=== PATIENT | male | born 1950 | race Asian ===

== ENCOUNTER 2019-12-26 11:37 | Emergency (ER) | payer MEDICARE ==
--- OUTSIDE RECORDS SUMMARY | 2019-12-26 11:46 | XMS REPORT | Continuity of Care Document ---
:1950 External Reference #:[id number] Author Name Jaime Marcelino M.D. (transmitted by agent of provider Laila Casper ) Address [address], [address] [place] [id number] Care Team Providers Name Role Phone [facility] deltamethod - Care Team Information Teradata Architect [phone] Travel Registered Nurse Oncology Jaime Marcelino III, MD - Internal Care Team Information [employer]adata Architect Medicine Sunshine Sawant MD - Pulmonary Care Team Information [employer] Architect Disease Problems Active Problems Provider Date Arteriovenous malformation of large intestine Shreyas Albarran MD Onset: 08/2018 Note: bicapped March 2018 Tobacco dependence syndrome Shreyas Albarran MD Onset: 07/20/1966 Occult blood in stools Shreyas Albarran MD Onset: 07/20/2018 Note: negative 07/20/18 Gastroesophageal reflux disease Shreyas Albarran MD Onset: 2018 Diabetes mellitus Shreyas Albarran MD Onset: 2005 Note: A1cs- Jul 2018 9.8 - in Feb 2019 previous 8 yrs worst 10.12 Aug 2014 and best 6.17 Oct 2016; Hypertensive disorder Shreyas Albarran MD Onset: 2003 Social History Type Date Description Comments Sex Unknown Tobacco Use Start: Unknown current cigarette smoker Cigarette Use Pack Years - 48 1/2 last 5 year 1 pack last 45 Smoking Status Reviewed: 11/01/19 current cigarette smoker ETOH Use Occasionally Consumed Alcoholic Beverages Tobacco Use Start: Unknown Patient is a current 1/2 pack cigarettes a smoker, smokes every day. day Recreational Drug Use Denies Drug Use Allergies, Adverse Reactions, Alerts Description No Known Drug Allergies Medications Active Medications SIG Qnty Indications Ordering Date Provider Ventolin HFA 1 to 2 inhalations 8gm R06.02 Page 09/22/2019 every 4 to 6 hours DYLAN White 108(90Base) mcg/Act as needed Aerosol Glipizide ER Take One Tablet By 180tabs Jaime ETracy 06/11/2019 10mg Mouth Twice A Day Otis Marcelino Tablets ER 24HR as Directed Jardiance 1 by mouth daily in 90tabs E11.9 Jaime ETracy 05/05/2019 10mg the morning Otis Marcelino Tablets Omeprazole 1 by mouth three 90caps Jaime ETracy 07/14/2018 20mg times a week Otis Marcelino Capsules Lisinopril-Hydrochl Take One Tablet By 90tabs Jaime E. orothiazide Mouth Once Daily Otis Marcelino 20-12.5mg Tablets Pravastatin Sodium take 1 tablet by 90tabs Jaime E. mouth at bedtime Otis Marcelino 40mg Tablets Metformin HCL take one tablet by 180tabs Jaime E. mouth twice a day Otis Marcelino 1000mg Tablets History Medications Nicoderm CQ use 1 patch daily 28units Jaime Marcelino, 06/15/2019 - M.D. 07/13/2019 14mg/24HR Patches 24HR Nicorette pt req fruity 110units Jaime Marcelino, 06/15/2019 - 4mg Gum flavored Nicotine Otis 07/13/2019 Medications Administered in Office Medication SIG Qnty Indications Ordering Provider Date [facility] pharmacy administered Unknown 09/16/2019 Injection Immunizations CPT Code Status Date Vaccine Reaction Lot # [id number] Given 08/30/2019 Fluzone High Dose 39111 Given 05/05/2019 Tdap - shot tolerated well, no 525np Tetanus/Diptheria/Acellular immediate reaction Pertussis 26119 Given 06/03/2018 Pneumonia Vaccine 76051 Given 10/22/2016 Pneumococcal Conjugate Vaccine 13 Valent For Intramuscular Use 49929 Given 08/12/2008 Tetanus And Diptheria (Td) For Adult Use Preservative Free Vital Signs Date Vital Result Comment 11/01/2019 3:44pm Height 62 inches 5'2" Weight 150.00 lb Heart Rate 70 /min BP Systolic Sitting 108 mmHg BP Diastolic Sitting 60 mmHg BMI (Body Mass Index) 27.4 kg/m2 09/22/2019 1:46pm Height 62 inches 5'2" Weight 149.00 lb Heart Rate 54 /min BP Systolic 108 mmHg BP Diastolic 60 mmHg O2 % BldC Oximetry 93 % BMI (Body Mass Index) 27.2 kg/m2 Results Test Acquired Date Facility Test Result H/L Range Note Laboratory test 08/05/2019 [facility] House Hemoglobin A1c 7.4 High 5-7 finding Basic Metabolic 06/04/2019 [facility] Sodium 137 mmol/L Normal 135-[address] [place] [address] [phone] Potassium 4.8 mmol/L Normal 3.5-5.0 Chloride 101 mmol/L Normal 101-111 Co2 Carbon Dioxide 30 mmol/L Normal 22-32 Anion Gap 6 mmol/L Normal 2-11 Glucose 126 mg/dL High 70-100 Blood Urea Nitrogen 28 mg/dL High 6-24 Creatinine 1.21 mg/dL High 0.67-1.17 BUN/Creatinine Ratio 23.1 High 8-20 Calcium 9.9 mg/dL Normal 8.6-10.3 Egfr Non- 59.1 >60 Egfr 71.5 >60 1 1 Because ethnic data is not always readily available, this report includes an eGFR for both -Americans and non- Americans. The National Kidney Disease Education Program (NKDEP) does not endorse the use of the MDRD equation for patients that are not between the ages of 18 and 70, are , have extremes of body size, muscle mass, or nutritional status, or are non- or non-. According to the National Kidney Foundation, irrespective of diagnosis, the stage of the disease is based on the level of kidney function: Stage Description GFR(mL/min/1.73 m(2)) 1 Kidney damage with normal or decreased GFR 90 2 Kidney damage with mild decrease in GFR 60-89 3 Moderate decrease in GFR 30-59 4 Severe decrease in GFR 15-29 5 Kidney failure <15 (or dialysis) Procedures Date Code Description Status 08/09/2019 94683 Sleep Study Unattended,HRT Rate,Oxygen Sat,Resp Completed Effort/Airflow 08/09/2019 80420 Diffusing Capacity Completed 08/09/2019 09120 Pulmonary Stress Testing[facility] Measurement Heart Rate, Completed Oximetry 08/09/2019 93955 Spirometry Incl Graphic Record Completed 03/27/2018 02383047 Colonoscopy Completed 10/31/2008 05634608 Colonoscopy Completed Medical Devices Description No Information Available Encounters Type Date Location Provider Dx Diagnosis Office Visit 09/22/2019 [facility] R06.02 Shortness of 2:00p [facility] White breath [employer] F17.210 Nicotine dependence, cigarettes, uncomplicated Z12.2 Encntr screen for malignant neoplasm of respiratory organs G47.33 Obstructive sleep apnea (adult) (pediatric) R09.02 Hypoxemia Office Visit 08/05/2019 3:00p [facility] Internal Jaime Camarillo E11.9 Type 2 diabetes Jovanny Marcelino M.D. mellitus without [facility] complications I10 Essential (primary) hypertension E78.00 Pure hypercholesterolemia, unspecified Office Visit 07/13/2019 8:30a [facility] Sunshine R06.02 Shortness of [facility] Jese breath [employer] R06.83 Snoring R09.02 Hypoxemia F17.210 Nicotine dependence, cigarettes, uncomplicated Z12.2 Encntr screen for malignant neoplasm of respiratory organs Office Visit 05/05/2019 3:00p [facility] Internal Jaime Camarillo E11.9 Type 2 diabetes Jovanny Marcelino M.D. mellitus without [facility] complications Z23 Encounter for immunization Assessments Date Code Description Provider 11/01/2019 E11.9 Type 2 diabetes mellitus without Jaime Marcelino M.D. complications 11/01/2019 I10 Essential (primary) hypertension Jaime Marcelino M.D. 11/01/2019 G47.33 Obstructive sleep apnea (adult) (pediatric) Jaime Marcelino M.D. 09/22/2019 R06.02 Shortness of breath Page White NP 09/22/2019 F17.210 Nicotine dependence, cigarettes, Page White NP uncomplicated 09/22/2019 Z12.2 Encounter for screening for malignant Page White NP neoplasm of respiratory organs 09/22/2019 G47.33 Obstructive sleep apnea (adult) (pediatric) Page White NP 09/22/2019 R09.02 Hypoxemia Page White NP 08/09/2019 G47.33 Obstructive sleep apnea (adult) (pediatric) Sunshine Sawant MD 08/09/2019 R06.02 Shortness of breath Sunshine Sawant MD 08/05/2019 E11.9 Type 2 diabetes mellitus without Jaime Marcelino M.D. complications 08/05/2019 I10 Essential (primary) hypertension Jaime Marcelino M.D. 08/05/2019 E78.00 Pure hypercholesterolemia, unspecified Jaime Marcelino M.D. 07/13/2019 R06.02 Shortness of breath Sunshine Sawant MD 07/13/2019 R06.83 Snoring Sunshine Sawant MD 07/13/2019 R09.02 Hypoxemia Sunshine Sawant MD 07/13/2019 F17.210 Nicotine dependence, cigarettes, Sunshine Sawant MD uncomplicated 07/13/2019 Z12.2 Encounter for screening for malignant Sunshine Sawant MD neoplasm of respiratory organs 05/05/2019 E11.9 Type 2 diabetes mellitus without Jaime Marcelino M.D. complications 05/05/2019 Z23 Encounter for immunization Jaime Marcelino M.D. Plan of Treatment Future Appointment(s):02/10/2020 3:00 pm - Jaime Marcelino M.D. at [facility] Internal Medicine - [facility]03/13/2020 1:00 pm - Shreyas Albarran MD at [facility] [id number]/22/2020 2:30 pm - Page White NP at [facility]11/01/2019 - Jaime Marcelino M.D.E11.9 Type 2 diabetes mellitus without complicationsComments:Jardiance refilled; other meds current. Continue diet, exercise, weight control efforts.Follow up:February as [id number] Essential (primary) hypertensionComments:BPs good. Lisinopril [id number] Obstructive sleep apnea (adult) (pediatric)Comments:CPAP trial just done; no results on chart yet, but pt following at the sleep clinic Functional Status Description No Information Available Mental Status Description No Information Available Referrals Refer to Reason for Referral Status Appt Date Sunshine Sawant MD (+) COPD, abnormal overnight oximetry Sent 07/13/[address] [place] [address] [phone]
[2019-12-26 11:52] VITALS: BP 132/76
--- NOTE | 2019-12-26 12:17 | UC ---
Eye Complaint HPI - HPI Summary HPI Summary: 69 year old male presents with complaints of right eye itching and redness that started yesterday. States this morning he woke up with with some tenderness and swelling of the lower eyelid. No known injury. Denies fever, chills, URI symptoms, visual disturbances, or eye pain. - History of Current Complaint Chief Complaint: UCEye Stated Complaint: EYE ISSUE Time Seen by Provider: 12/26/19 12:11 Hx Obtained From: Patient Pain Intensity: 0 - Allergies/Home Medications Allergies/Adverse Reactions: Allergies Allergy/AdvReac Type Severity Reaction Status Date / Time No Known Allergies Allergy Verified 12/26/19 11:52 PMH/Surg Hx/FS Hx/Imm Hx Endocrine History: Diabetes, Dyslipidemia Cardiovascular History: Hypertension GI/ History: Gastroesophageal Reflux - Surgical History Surgical History: None - Family History Known Family History: Positive: Non-Contributory - Social History Occupation: Retired Lives: With Family Alcohol Use: None Substance Use Type: None Smoking Status (MU): Light Every Day Tobacco Smoker Review of Systems All Other Systems Reviewed And Are Negative: Yes Physical Exam - Summary Physical Exam Summary: GENERAL APPEARANCE: Well developed, well nourished, alert and cooperative, and appears to be in no acute distress. EYES: Single hordeolum noted to the right lower eyelid. Mild erythema and edema of the lower lid. Mild right conjunctival erythema with scant amount of purulent drainage. Left conjunctiva clear. PERRL, EOM intact. Vision is grossly intact. EARS: External auditory canals and tympanic membranes clear, hearing grossly intact. NOSE: No nasal discharge. THROAT: Pharynx normal. No tonsilar inflammation, swelling, exudate, or lesions. Uvula midline. NECK: Neck supple, non-tender without lymphadenopathy. CARDIAC: Normal S1 and S2. No S3, S4 or murmurs. Rhythm is regular. There is no peripheral edema, cyanosis or pallor. Extremities are warm and well perfused. Capillary refill is less than 2 seconds. Peripheral pulses intact. LUNGS: Clear to auscultation without rales, rhonchi, wheezing or diminished breath sounds. ABDOMEN: Positive bowel sounds. Soft, nondistended, nontender. No guarding or rebound. No masses or hepatosplenomegally. MUSKULOSKELETAL: ROM intact to all extremities. No joint erythema or tenderness. Normal muscular development. Normal gait. SKIN: Skin normal color, texture and turgor with no lesions or eruptions. Triage Information Reviewed: Yes Vital Signs: Initial Vital Signs Temp 97.4 F 12/26/19 11:48 Pulse 70 12/26/19 11:48 Resp 12 12/26/19 11:48 BP 132/76 12/26/19 11:48 Pulse Ox 99 12/26/19 11:48 Vital Signs Reviewed: Yes Eye Complaint Course/Dx - Course Course Of Treatment: 69 year old male presents with complaints of right eye itching and redness that started yesterday. States this morning he woke up with with some tenderness and swelling of the lower eyelid. No known injury. Denies fever, chills, URI symptoms, visual disturbances, or eye pain. Afebrile. Vital signs stable. Patient had a single hordeolum noted to the right lower eyelid with mild erythema and edema of the lower lid. Mild right conjunctival erythema with scant amount of purulent drainage. Left conjunctiva clear. PERRL, EOM intact. Vision is grossly intact. Remainder of exam was unremarkable. Discussed with the patient that his exam is consistent with a hordeolum with infection. Will start him on ofloxacin opthalmic drops 1-2 drops into the affected eye every 4 hours while awake x 7 days and have him perform warm moist compresses to the eye. He is to follow up with ophthalmology in 2 days if no improvement. Anticipatory guidance and warning symptoms reviewed with patient. Verbalizes understanding and agrees with POC. - Differential Dx/Diagnosis Differential Diagnosis/HQI/PQRI: Conjunctivitis, Periorbital Cellulitis, Orbital Cellulitis Provider Diagnosis: Hordeolum externum right lower eyelid Discharge ED - Sign-Out/Discharge Documenting (check all that apply): Patient Departure All imaging exams completed and their final reports reviewed: No Studies - Discharge Plan Condition: Stable Disposition: HOME Prescriptions: Ofloxacin 0.3% (Eye Drop) [Ocuflox OPTH 0.3% (Eye Drop)] 1 - 2 drop RIGHT EYE Q4H 7 Days #1 btl Patient Education Materials: Kely (ED) Referrals: Jaime Marcelino MD [Primary Care Provider] - Juan Carlos Gaona MD [Medical Doctor] - 2 Days (If no improvement. Call for appointment.) Additional Instructions: Your symptoms are consistent with a hordeolum (stye) of the lower right eyelid. There appears to be some infection present therefore we will start you on an antibiotic eye drop. Start ofloxacin ophthalmic drops. Instill 1-2 drops into the affected eye every 4 hours while awake for 7 days. Apply a warm moist compress to the eye for 15 minutes at least 3 times a day. Take acetaminophen (Tylenol) or ibuprofen (Advil, Motrin) according to directions as needed for pain. Follow up with ophthalmology in 2 days if no improvement in your symptoms. Call for an appointment. Seek immediate medical attention in the emergency room if you develop fever greater than 100.5 F, have severe eye pain, visual disturbances, loss of vision , increased swelling of the eye, or any worsening of symptoms. - Billing Disposition and Condition Condition: STABLE Disposition: Home
== END 2019-12-26 12:49 | disposition home or self-care (01) ==
LOC: UCEAST 11:37
DX: H00.012 Hordeolum externum right lower eyelid (principal); I10 Essential (primary) hypertension; F17.200 Nicotine dependence, unspecified, uncomplicated
CPT/HCPCS: 99212; G0463